=== PATIENT | male | born 1970 | race African-American/Black ===

== ENCOUNTER 2017-09-27 11:58 | Emergency (ER) | payer OTHER ==
[~2017-09-27] VITALS: Ht 182.9 cm; Wt 122.1 kg
[~2017-09-27 11:58] MED LIST: ATORVASTATIN CA40 MG PO; MOTRIN800 MG PO; NAPROSYN500 MG PO; NOHOMEMEDS; PERCOCET 5-3251 EACH PO; PREDNISONE10 M1 PO; PREDNISONE20 MG PO; ROBITUSSIN AC,T10 ML PO; SIMVASTATIN20 MG PO; TAMIFLU75 MG PO; ZITHROMAX500 MG PO
[2017-09-27 12:28] LABS: HEMOGLOBIN 13.9 G/DL (12.5-16.6); MCH 32.2 PG (29.0-34.0); MCHC 34.8 G/DL (30.0-36.0); MCV 92.6 FL (86-99); PLATELET COUNT 215 K/uL (156-360); RBC DIS.WIDTH-CV 13.2 % (11.8-14.6); RBC DIS.WIDTH-SD 45.1 % (39-53); RED BLOOD COUNT 4.32 M/uL (4.00-5.50); WHITE BLOOD COUNT 6.7 K/uL (4.1-10.2)
[2017-09-27 12:37] LABS: CHLORIDE 105 mEq/L (99-109); POTASSIUM 4.2 mEq/L (3.7-5.4); SODIUM 137 mEq/L (136-147)
[2017-09-27 12:38] LABS: GLUCOSE 93 mg/dL (70-99)
[2017-09-27 12:42] LABS: CREATININE 1.3 mg/dL (0.6-1.3); GFR ESTIMATE (CALCULATED) > 59 mL/min/ (58.99-99999)
[2017-09-27 12:43] LABS: UREA NITROGEN (BUN) 12 mg/dL (9-23)
[2017-09-27 12:50] LABS: TROP-I INTERPRETATION NEGATIVE; TROPONIN-I < 0.01 ng/mL (0.0-0.30)
[2017-09-27 15:14] LABS: TROP-I INTERPRETATION NEGATIVE; TROPONIN-I < 0.01 ng/mL (0.0-0.30)
[2017-09-27 15:50] VITALS: BP 134/82
== END 2017-09-27 15:50 | disposition home or self-care (01) ==
LOC: EME 11:58
PROVIDERS: Emergency Medicine
DX: R07.9 Chest pain, unspecified (principal); E78.5 Hyperlipidemia, unspecified; F17.200 Nicotine dependence, unspecified, uncomplicated
CPT/HCPCS: 71046; 80048; 84484; 85027; 93005; 99281; 99284